=== PATIENT | female | born 1995 | race Caucasian/White ===

== ENCOUNTER 2017-11-18 07:57 | Outpatient (CLI) | payer OTHER ==
--- NOTE | 2017-11-18 09:34 | ULT ---
ABDOMEN ULTRASOUND: HISTORY: Abdominal pain. COMPARISON: None. TECHNIQUE: Utilizing a multihertz transducer, sonographic imaging of the abdomen was performed in the longitudin al and transverse plane. FINDINGS: Visualized hepatic parenchyma has a normal echotexture. No hepatic masses or intrahepatic biliary di latation. Contour of the hepatic margin is maintained. Right hepatic lobe measures 13.6 cm. No sonographic evidence of cholelithiasis, gallbladder wall thickening, or pericholecystic fluid. So nographer does not comment on the presence or absence of Cruz's sign. The common bile duct diameter is 0.4 cm. Visualized aorta and inferior vena cava are unremarkable. Pancreas is partially obscured by bowel gas. The head of the pancreas has a normal echotexture. Main portal vein is patent. Appropriate directional flow. Bilaterally, no hydronephrosis. Kidneys have normal cortical echotexture. The right kidney measures 4.0 x 3.8 x 10.6 cm. The left kidney measures 4.4 x 10.5 x 3.8 cm. Spleen measures 10.2 cm in maximum dimension. IMPRESSION: Unremarkable abdomen ultrasound. POS: [facility]
--- NOTE | 2017-11-18 10:16 | ULT ---
PELVIC ULTRASOUND: COMPARISON: None. HISTORY: Abdominal/pelvic pain. TECHNIQUE: Multiplanar, gaitan scale, and color Doppler images were obtained in a transabdominal pelvic ultrasound . A transvaginal exam was not performed as the patient is not sexually active. FINDINGS: The uterus is normal I size without focal abnormality. The endometrial stripe is upper limits of nor mal measuring 11 mm. No free fluid is seen in the pelvis. Both ovaries are normal in size and appearance and demonstrate normal internal flow. IMPRESSION: Unremarkable pelvic ultrasound. POS: [facility]
== END 2017-11-18 07:58 | disposition home or self-care (01) ==
LOC: SCSULT 07:57
PROVIDERS: ATTEND Family Medicine
DX: R10.9 Unspecified abdominal pain (principal)
CPT/HCPCS: 76700; 76856; 93976

== ENCOUNTER 2022-06-04 08:09 | Outpatient (CLI) | payer BC | END 2022-06-04 08:10 | disposition home or self-care (01) | LOC: CT 08:09 | PROVIDERS: ATTEND Family Medicine | DX: R19.7 Diarrhea, unspecified (principal) | CPT/HCPCS: 74177 ==